=== PATIENT | female | born 1985 | race Caucasian/White ===

== ENCOUNTER 2023-02-19 00:30 | Emergency (ER) | payer SELFPAY ==
[~2023-02-19] VITALS: Ht 165.1 cm; Wt 75.0 kg
[2023-02-19] MEDS ORDERED: ACETAMINOPHEN 325MG TABLET PO ONE (00:45)
[2023-02-19 00:58] VITALS: BP 134/72; PULSE 84; RESP 17; TEMP 98.4; O2SAT 100
== END 2023-02-19 01:53 | disposition left against medical advice (07) ==
LOC: ER 00:30
DX: G44.209 Tension-type headache, unspecified, not intractable (principal); Z00.00 Encounter for general adult medical examination without abnormal findings
CPT/HCPCS: 99283